=== PATIENT | female | born 1945 | race Caucasian/White ===

== ENCOUNTER 2022-03-21 13:07 | Inpatient (IN) | payer MEDICARE, BC ==
[~2022-03-21] VITALS: Ht 165.1 cm; Wt 71.7 kg
[2022-03-21] MEDS ORDERED: DONE10TA44 PO (13:39)
[2022-03-21] MEDS ORDERED: LORA-258 PO (13:40)
[2022-03-21] MEDS ORDERED: METO-356 PO (13:41)
[2022-03-21] MEDS ORDERED: VALS1TAB6 PO (13:42)
[2022-03-21] MEDS ORDERED: ROSU10TA29 PO (13:42)
--- NOTE | 2022-03-21 13:44 | NUR ---
Pt states she is depressed, denies SI, HI, AH and VH. Pt also denies any physical complaints, no distress noted.
[2022-03-21 13:59] LABS: HEMATOCRIT 39.8 % (31.2-41.9); MEAN CORPUSCULAR HEMOGLOBIN 29.4 uug (24.7-32.8); MEAN CORPUSCULAR VOLUME 86.3 fL (75.5-95.3); PLATELET COUNT (AUTO) 204 K/uL (179-408)
[2022-03-21 14:04] LABS: CARBON DIOXIDE 32 mmol/L (21-32); CHLORIDE 102 mmol/L (98-107); CREATININE 1.3 mg/dL (0.6-1.3); GLUCOSE 207 mg/dL (74-106); POTASSIUM 3.6 mmol/L (3.5-5.1); UREA NITROGEN, BLOOD 28 mg/dL (7-18)
[2022-03-21 14:04] LABS: *BILIRUBIN,URIN NEGATIVE (NEGATIVE); *BLOOD, URINE NEGATIVE (NEGATIVE); *CLARITY,URINE CLEAR (CLEAR); *COLOR,URINE YELLOW (YELLOW); *KETONES,URINE NEGATIVE (NEGATIVE); LEUKOCYTE ESTERASE ,URINE TRACE (NEGATIVE); NITRITE, URINE POSITIVE (NEGATIVE); PH,URINE 5.5 (5.0-8.0); UGLUCOSE NEGATIVE (NEGATIVE)
[2022-03-21 14:09] LABS: ALANINE AMINOTRANSFERASE 18 U/L (14-59); ALKALINE PHOSPHATASE 79 U/L (50-136); ASPARTATE AMINOTRANSFERASE 18 U/L (15-37); BILIRUBIN,DIRECT 0.1 mg/dL (0.0-0.2); BILIRUBIN,TOTAL 0.4 mg/dL (0.2-1.0); TOTAL PROTEIN, SERUM 6.1 g/dL (6.4-8.2)
[2022-03-21 14:20] LABS: *AMPHETAMINE, URINE NEGATIVE (NEGATIVE); *CANNABINOID, URINE NEGATIVE (NEGATIVE); *COCCAINE, URINE NEGATIVE (NEGATIVE); *OPIATE, URINE NEGATIVE (NEGATIVE); *PHENCYCLIDINE SCREEN,URINE NEGATIVE (NEGATIVE)
[2022-03-21 14:20] LABS: ACETAMINOPHEN < 2.0 ug/mL (10-30); ETHANOL < 3 MG/DL (0-0)
--- NOTE | 2022-03-21 14:28 | NUR ---
Called art, he said will come for psych eval.
[2022-03-21] MEDS ORDERED: CEphaleXIN 500 MG CAPSULE PO ONE (16:30)
[2022-03-21 16:32] LABS: BACTERIA,URINE FEW /HPF (NONE SEEN); RBC,URINE 0-3 /HPF (0-3); SQUAMOUS EPITHELIAL CELL,UR FEW /HPF (NONE SEEN)
[2022-03-21 16:33] LABS: URINE AMORPHOUS URATE MODERATE /HPF
[2022-03-21] MEDS ORDERED: CEphaleXIN 500 MG CAPSULE ONE (16:44)
--- NOTE | 2022-03-21 16:45 | NUR ---
Art at pts bedside.
--- NOTE | 2022-03-21 17:08 | NUR ---
Spoke with nurse shankar, pt will be going to [facility] room 139A
--- NOTE | 2022-03-21 18:15 | NUR ---
Called report to CHUYITA Saavedra.
[2022-03-21] MEDS ORDERED: MAGNESIUM HYDROXIDE 30 ML LIQUID UDC PO PRN (20:15)
[2022-03-21] MEDS ORDERED: MAG HYDROX/AL HYDROX/SIMETH 30 ML LIQUID UDC PO PRN (20:15)
[2022-03-21 20:25] VITALS: BP 163/53
[2022-03-21] MEDS ORDERED: BLOOD SUGAR DIAGNOSTIC 1 EACH STRIP VI ONE (20:30)
--- NOTE | 2022-03-21 20:33 | NUR ---
Pt taken to [facility] via [facility] with all belongings.
[2022-03-21] MEDS: ATORVASTATIN 20 MG TABLET PO SCH (21:00)
[2022-03-21] MEDS: ZOLPIDEM 5 MG TABLET PO PRN (22:25)
[2022-03-22] MEDS: LORAZEPAM 0.5 MG TABLET PO PRN ×2 (00:46→12:57)
[2022-03-22 07:29] LABS: BILIRUBIN,TOTAL 0.6 mg/dL (0.2-1.0); CREATININE 1.3 mg/dL (0.6-1.3); POTASSIUM 3.6 mmol/L (3.5-5.1)
[2022-03-22 07:39] VITALS: BP 159/46
[2022-03-22] MEDS: VALSARTAN 160 MG TABLET PO SCH (09:27)
[2022-03-22] MEDS: METOPROLOL SUCCINATE XL 25 MG TAB.SR.24H PO SCH (09:27)
[2022-03-22] MEDS: CEphaleXIN 500 MG CAPSULE PO SCH ×2 (09:28→17:07)
[2022-03-22] MEDS: HYDROCHLOROTHIAZIDE 25 MG TABLET PO SCH (09:29)
[2022-03-22] MEDS: DONEPEZIL 10 MG TABLET PO SCH (09:29)
[2022-03-22] MEDS ORDERED: ESCI20TA PO (11:19)
[2022-03-22] MEDS ORDERED: INSU300I SQ (11:19)
[2022-03-22] MEDS ORDERED: INSU100V SQ (11:19)
--- NOTE | 2022-03-22 12:10 | NUR ---
WHITNEY Family Contact: WHITNEY spoke with pt's , Edgar ([phone]) during visitation hours with the pt and discussed pt's current state and discharge plan. Edgar and the pt are aware and agreeable. Pt stated she would like a psychiatrist follow-up at discharge. WHITNEY explained the treatment plan and both pt and . They are agreeable. Edgar stated pt will return home with him under his care.
[2022-03-22] MEDS ORDERED: DEXTROSE 50% 50 ML DISP.SYRIN IV PRN (12:45)
[2022-03-22] MEDS ORDERED: BLOOD SUGAR DIAGNOSTIC 1 EACH STRIP VI ONE (12:45)
[2022-03-22] MEDS: INSULIN REGULAR, HUMAN 300 UNIT/3 ML VIAL SQ SCH ×2 (13:00→17:07)
[2022-03-22] MEDS: ESCITALOPRAM OXALATE 10 MG TABLET PO SCH (13:09)
--- NOTE | 2022-03-22 14:28 | NUR ---
WHITNEY Initial Discharge Note: Pt currently resides at home with her , Edgar located at [id number] [place] [address] ([phone]). Per , pt will return home under his care upon discharge. WHITNEY will continue to communicate and work with pt, family and MD to ensure a safe and proper discharge plan.
--- NOTE | 2022-03-22 14:58 | NUR ---
recd patent after 1000am ,patient very anxious about her insulin and she didnt get any medications this am which is incorrect, pt is forgetful, she received insulin after order put in by pharmacy and MD, 15 units of regular insulin standard dose, pt received dose and continued eat blood sugar was 278 before insulin , ATIVAN 0.5MG GIVEN then pt slept fpor shortiod of time, patient up walking in hallway no complaints given,
[2022-03-22] MEDS ORDERED: INSULIN REGULAR, HUMAN 300 UNIT/3 ML VIAL SQ SCH (16:30)
[2022-03-22 16:58] VITALS: BP 154/48
[2022-03-22 20:42] VITALS: BP 168/47
[2022-03-22] MEDS: QUETIAPINE FUMARATE 25 MG TABLET PO SCH (20:42)
[2022-03-22] MEDS: ATORVASTATIN 20 MG TABLET PO SCH (20:42)
[2022-03-22] MEDS: INSULIN GLARGINE,HUM 300 UNITS/3 ML CARTRIDGE SQ SCH (21:15)
[2022-03-22] MEDS: ZOLPIDEM 5 MG TABLET PO PRN (22:08)
--- NOTE | 2022-03-23 05:49 | NUR ---
Received to care, lying in bed, pleasant, but isolative. Denies wanting to harm self, or having any suicidal ideations. Compliant with staff. Lantus insulin and bedtime snack was given. Cindy given a ther request, for insomnia. She slept well throughout the night. No distress noted.
[2022-03-23] MEDS ORDERED: BLOOD SUGAR DIAGNOSTIC 1 EACH STRIP VI SCH ×2 (07:00→09:00)
[2022-03-23 07:47] VITALS: BP 153/54
[2022-03-23] MEDS: METOPROLOL SUCCINATE XL 25 MG TAB.SR.24H PO SCH (08:42)
[2022-03-23] MEDS: DONEPEZIL 10 MG TABLET PO SCH (08:42)
[2022-03-23] MEDS: INSULIN REGULAR, HUMAN 300 UNIT/3 ML VIAL SQ SCH ×3 (08:42→16:42)
[2022-03-23] MEDS: VALSARTAN 160 MG TABLET PO SCH (08:42)
[2022-03-23] MEDS: HYDROCHLOROTHIAZIDE 25 MG TABLET PO SCH (08:43)
[2022-03-23] MEDS: CEphaleXIN 500 MG CAPSULE PO SCH ×2 (08:43→16:42)
[2022-03-23] MEDS: ESCITALOPRAM OXALATE 10 MG TABLET PO SCH (08:43)
[2022-03-23] MEDS: LORAZEPAM 0.5 MG TABLET PO PRN (12:17)
--- NOTE | 2022-03-23 14:48 | NUR ---
Patient remain pleasant upon approach thorough the shift. Isolative stay in her room , able to make her needs known, Interacts with select peers. No distress noted.Medicated x 1 with Ativan 0.5 mg as ordered.Regular Insulin 15 units given as per order with new order for accuchecks AC/HS no sliding scale.Will continue to monitor closely for comfort and safety
[2022-03-23 16:04] VITALS: BP 171/64
[2022-03-23] MEDS: BLOOD SUGAR DIAGNOSTIC 1 EACH STRIP VI SCH ×2 (16:16→20:33)
[2022-03-23 16:22] VITALS: BP 141/54
[2022-03-23 20:00] VITALS: BP 165/52
[2022-03-23] MEDS: ATORVASTATIN 20 MG TABLET PO SCH (20:26)
[2022-03-23] MEDS: QUETIAPINE FUMARATE 25 MG TABLET PO SCH (20:26)
[2022-03-23] MEDS: INSULIN GLARGINE,HUM 300 UNITS/3 ML CARTRIDGE SQ SCH (20:39)
[2022-03-23] MEDS: ZOLPIDEM 5 MG TABLET PO PRN (20:43)
--- NOTE | 2022-03-24 05:15 | NUR ---
Patient alert oriented, no complain of pain, cooperative with care and medication. Patient calm and request sleeping pill. Patient has no s/s of hypo/hyperglycemia noted, cont to monitor.
[2022-03-24] MEDS: BLOOD SUGAR DIAGNOSTIC 1 EACH STRIP VI SCH ×4 (06:00→20:20)
[2022-03-24] MEDS: INSULIN REGULAR, HUMAN 300 UNIT/3 ML VIAL SQ SCH ×3 (07:30→17:07)
--- NOTE | 2022-03-24 07:30 | NUR ---
received patient awake alert and wanting to go home she s their not helping me no therapist, nothhing to do and started to cry called for her to tslk , she s on 14dey hold now up 04/11/22. paqtient received Ativan 0,5mg with some effect aqfter 15 minutes, blood sugar at 1130 168 with standing dose of 15 units reg insulin, Oral intake good voidingqs. continue to monitor for safety
[2022-03-24 07:32] VITALS: BP 163/53
[2022-03-24] MEDS ORDERED: INSULIN GLARGINE,HUM 300 UNITS/3 ML CARTRIDGE SQ SCH (09:00)
[2022-03-24] MEDS: VALSARTAN 160 MG TABLET PO SCH (09:11)
[2022-03-24] MEDS: CEphaleXIN 500 MG CAPSULE PO SCH ×2 (09:11→17:01)
[2022-03-24] MEDS: METOPROLOL SUCCINATE XL 25 MG TAB.SR.24H PO SCH (09:12)
[2022-03-24] MEDS: DONEPEZIL 10 MG TABLET PO SCH (09:12)
[2022-03-24] MEDS: HYDROCHLOROTHIAZIDE 25 MG TABLET PO SCH (09:13)
[2022-03-24] MEDS: ESCITALOPRAM OXALATE 10 MG TABLET PO SCH (09:13)
--- NOTE | 2022-03-24 10:45 | NUR ---
5250 Hearing Requests submitted to [facility].
[2022-03-24] MEDS: LORAZEPAM 0.5 MG TABLET PO PRN ×3 (12:10→17:01)
[2022-03-24] MEDS: ACETAMINOPHEN 325 MG TABLET PO PRN (15:26)
[2022-03-24 16:15] VITALS: BP 145/88
--- NOTE | 2022-03-24 18:26 | NUR ---
patient less anxious after ativan and re assurance that shes going to be ok, @ bedsidecontinue to monitor blood sugars and pt is [place] bilaterally, hearing aides at bedside
[2022-03-24 19:54] VITALS: BP 126/53
[2022-03-24] MEDS: INSULIN GLARGINE,HUM 300 UNITS/3 ML CARTRIDGE SQ SCH (20:19)
[2022-03-24] MEDS: ATORVASTATIN 20 MG TABLET PO SCH (20:19)
[2022-03-24] MEDS: QUETIAPINE FUMARATE 25 MG TABLET PO SCH (20:20)
--- NOTE | 2022-03-24 20:30 | NUR ---
RECEIVED PATIENT IN HER BED. SHE WAS NOTED AWAKE A/OX 3. ABLE TO VERBALIZED FEELINGS. PATIENT NOTED WITH LOW MOOD. AFFECT IS BLUNTED. SHE CONTINUE WITHDRAWN BUT DENIED SI/HI/VH/AH. SHE IS ABLE TO VERBALLY CFS. PATIENT STATED THAT SHE IS SAD AND SHE HAS BEEN DEPRESSED FOR A WHILE DUE TO FEELING LONELY BUT SHE DOES NOT WANT TO HARM SELF OR . SHE IS EXPRESSING SHE WANTS TO GO HOME. PATIENT APPEARS TO MINIMIZED HER SYMPTOMS. PATIENT WAS REASSURED FOR HER SAFETY. SAFETY AND FALL PRECAUTION ARE IN PLACE. V/S STABLE. SHE WAS GIVEN PO FLUIDS AND SNACKS. WILL CONTINUE TO MONITOR .
[2022-03-24] MEDS: ZOLPIDEM 5 MG TABLET PO PRN (21:47)
[2022-03-25] MEDS: BLOOD SUGAR DIAGNOSTIC 1 EACH STRIP VI SCH ×4 (06:46→20:10)
[2022-03-25] MEDS: INSULIN REGULAR, HUMAN 300 UNIT/3 ML VIAL SQ SCH ×3 (07:29→17:06)
[2022-03-25 07:39] VITALS: BP 146/52
[2022-03-25] MEDS ORDERED: HYDROXYZINE PAMOATE 25 MG CAPSULE PO PRN (08:30)
[2022-03-25] MEDS: HYDROCHLOROTHIAZIDE 25 MG TABLET PO SCH (09:01)
[2022-03-25] MEDS: VALSARTAN 160 MG TABLET PO SCH (09:02)
[2022-03-25] MEDS: DONEPEZIL 10 MG TABLET PO SCH (09:02)
[2022-03-25] MEDS: METOPROLOL SUCCINATE XL 25 MG TAB.SR.24H PO SCH (09:03)
[2022-03-25] MEDS: ESCITALOPRAM OXALATE 10 MG TABLET PO SCH (09:04)
[2022-03-25] MEDS: CEphaleXIN 500 MG CAPSULE PO SCH ×2 (09:04→16:59)
[2022-03-25 16:33] VITALS: BP 149/56
[2022-03-25] MEDS: ACETAMINOPHEN 325 MG TABLET PO PRN (16:59)
--- NOTE | 2022-03-25 19:01 | NUR ---
patient remains anxious about going home even after speaking to Psych , blood glucose covered as ordered no s/s of glycemic reaction. C/o HEADACHE MEDICATED WIYH tylenol 650MG WITH SOME EFFECT REMAINS DEPRESSED ABOUT BEING HERE. CONTINUE TO PROVIIDE AQ SAFE ENVIRONMENT
[2022-03-25 19:49] VITALS: BP 127/83
--- NOTE | 2022-03-25 20:00 | NUR ---
CALLED RT AND LEFT A MESSAGE, PATIENT NEEDS EKG PER DR FAJARDO. PT IN NO DISTRESS. WILL CONTINUE TO MONITOR.
[2022-03-25] MEDS: QUETIAPINE FUMARATE 25 MG TABLET PO SCH (20:08)
[2022-03-25] MEDS: ATORVASTATIN 20 MG TABLET PO SCH (20:08)
[2022-03-25] MEDS: INSULIN GLARGINE,HUM 300 UNITS/3 ML CARTRIDGE SQ SCH (20:14)
[2022-03-25] MEDS: ZOLPIDEM 5 MG TABLET PO PRN (21:26)
--- NOTE | 2022-03-26 00:49 | NUR ---
RECEIVED PATIENT IN HER BED. SHE WAS NOTED AWAKE A/OX 3. SHE IS CALM AND PLEASANT UPON APPROACHED. SHE CONTINUE WITHDRAWN AND SHE APPEARS DEPRESSED BUT DENIED SI/HI/VH/AH. SHE IS ABLE TO VERBALLY CFS. PATIENT APPEARS TO MINIMIZED HER SYMPTOMS. PATIENT WAS REASSURED FOR HER SAFETY. SAFETY AND FALL PRECAUTION ARE IN PLACE. V/S STABLE. SHE WAS GIVEN PO FLUIDS AND SNACKS. WILL CONTINUE TO MONITOR .
[2022-03-26] MEDS: BLOOD SUGAR DIAGNOSTIC 1 EACH STRIP VI SCH ×2 (06:53→11:30)
[2022-03-26 07:30] VITALS: BP 145/56
[2022-03-26] MEDS: VALSARTAN 160 MG TABLET PO SCH (08:41)
[2022-03-26] MEDS: HYDROCHLOROTHIAZIDE 25 MG TABLET PO SCH (08:41)
[2022-03-26 08:42] VITALS: BP 145/56
[2022-03-26] MEDS: CEphaleXIN 500 MG CAPSULE PO SCH (08:42)
[2022-03-26] MEDS: ESCITALOPRAM OXALATE 10 MG TABLET PO SCH (08:42)
[2022-03-26] MEDS: METOPROLOL SUCCINATE XL 25 MG TAB.SR.24H PO SCH (08:42)
[2022-03-26] MEDS: DONEPEZIL 10 MG TABLET PO SCH (08:42)
[2022-03-26] MEDS: INSULIN REGULAR, HUMAN 300 UNIT/3 ML VIAL SQ SCH ×2 (08:45→11:30)
[2022-03-26] MEDS: ACETAMINOPHEN 325 MG TABLET PO PRN (10:30)
--- NOTE | 2022-03-26 11:08 | NUR ---
SW Family Contact: WHITNEY spoke with pt's , Edgar ([phone]) and discussed pt's discharge plan to return home under 's care for tomorrow, Friday the 2021 at 11AM. WHITNEY explained the process and continuation of care with follow-up psychiatrist follow-ups that this SW will help schedule for the pt. SW discussed time of pickup with Edgar and additional details. Edgar and pt are aware and agreeable.
--- NOTE | 2022-03-26 13:35 | NUR ---
PT [facility] 14 DAY HOLD HEARING DONE TODAY ,AND RELEASED BY COURT, MADE AWARE WILL BE DISCHARGE PATIENT HOME WITH FAMILY.
--- NOTE | 2022-03-26 13:53 | NUR ---
WHITNEY Discharge Note: [place] [address] via husbands, Edgar ([phone]) transportation by vehicle at 2PM. WHITNEY spoke with pts Edgar ([phone]) who states they are ready to accept the patient home today. Pt is aware and agreeable with discharge plans. Pt is alert and oriented x4, is unable to plan for self-care at this time; however, is willing to accept care by family at home. Pt denies any suicidal or homicidal ideation. Pt will follow-up at [facility] via telephone ([phone]) by assigned psychiatrist and therapist upon consultation on Friday, April 09, 2022 at 1:30PM confirmed by Jenni. Pt presents with calm mood and congruent affect. [facility]: [place] [address]. WHITNEY also provided additional resources. [facility] (Ask for Yulisa), [facility] ([phone]), ([phone]), [facility] ([facility]), ([phone]).
--- NOTE | 2022-03-26 14:46 | NUR ---
Discharged patient Home today,transportation by at 2;30 PM. Pt is aware and agreeable with discharge plans. Pt is alert and oriented x4, is unable to plan for self-care at this time; however, is willing to accept care by family at home. Pt denies any suicidal or homicidal ideation. Pt will follow-up at [facility] via telephone ([phone]) by assigned psychiatrist and therapist upon consultation on Friday, April 09, 2022 at 1:30PM confirmed by Jenni. all personal belonging returned to patient.
== END 2022-03-26 14:30 | disposition home or self-care (01) | DRG 885 ==
LOC: ER 13:07 → GPS 18:45
PROVIDERS: ADMIT Psychiatry & Neurology Psychiatry
DX: F32.3 Major depressive disorder, single episode, severe with psychotic features (principal); E11.65 Type 2 diabetes mellitus with hyperglycemia; F02.81 Dementia in other diseases classified elsewhere, unspecified severity, with behavioral disturbance; N39.0 Urinary tract infection, site not specified; R45.851 Suicidal ideations; G30.9 Alzheimer's disease, unspecified; B96.20 Unspecified Escherichia coli [E. coli] as the cause of diseases classified elsewhere; I10 Essential (primary) hypertension; Z79.4 Long term (current) use of insulin
CPT/HCPCS: 36415; 85025; 87077; 87086; 93005; 97161; A4663; G0480; J1815